=== PATIENT | male | born 1965 | race Caucasian/White ===

== ENCOUNTER 2018-02-13 19:54 | Emergency (ER) | payer OTHER ==
[~2018-02-13] VITALS: Ht 172.7 cm; Wt 72.6 kg
[2018-02-13] MEDS ORDERED: IBUPROFEN200 MG PO (20:46)
--- NOTE | 2018-02-15 09:02 | EKG ---
[facility] [address] [facility] [place] [address] Signed Sinus tachycardia Right bundle branch block Left anterior fascicular block Bifascicular block Inferior infarct , age undetermined Abnormal ECG No previous ECGs available Confirmed by GIAN COLE MD ([id number]) on 02/15/2018 9:01:55 AM Electronically Signed By: GIAN COLE MD 02/15/18 0902 PATIENT NAME: JAMI BOBO Electrocardiogram DATE OF : 63 PHYSICIAN: GIAN COLE MD REPORT #: [id number] REPORT IS CONFIDENTIAL AND NOT TO BE RELEASED WITHOUT AUTHORIZATION
== END 2018-02-13 23:00 | disposition home or self-care (01) ==
LOC: ED 19:54
DX: K29.00 Acute gastritis without bleeding (principal); R07.9 Chest pain, unspecified; Z88.1 Allergy status to other antibiotic agents
CPT/HCPCS: 71045; 80053; 84484; 85025; 93005; 93010; 96361; 96374; 96375; 99285; J2270; J2405; J7030